=== PATIENT | male | born 1985 | race Caucasian/White ===

== ENCOUNTER 2023-01-07 09:43 | Outpatient (CLI) | payer OTHER ==
[2023-01-07 10:36] VITALS: BP 110/62
--- NOTE | 2023-01-07 10:36 | SLEEP CARE CONSULTATION ---
Information from patient questionnaire entered by Shoshana Kennedy. I have reviewed and concur with the information entered by Shoshana Kennedy. This document represents the service I personally performed and the decisions made by me, Sena Comer ARNP. History of Present Illness Service Date and Time: 01/07/2023 0943 Reason for Visit: New patient Chief Complaint: reports: Unrefreshed sleep, Snoring, Excessive daytime sleepiness, Fatigue, Frequent awakenings at night, Other (WAKING WITH HEADACHS) Date of Onset: 10-18YRS Usual bedtime: 2200 Time it takes to fall asleep: 2-3 Snores at night: Yes Observed to quit breathing while asleep: No Sleeps alone due to snoring: No Number of times waking at night: 5+ Reasons for waking at night: reports: Other (UNKNOWN). denies: Choking, Gasping for air Toss, Turn, or Twitch while sleeping: Yes Recalls having dreams: Yes Usually gets out of bed at: [id number]; weekends 0900 Feels refreshed in the morning: No Morning headache: Yes (3-5 times a week, frontal headache; resolves with tylenol; DOESNT) Sleepy or fatigued during the day: Yes Ever fallen asleep while driving: Yes (drowsy driving; no accidents) Takes day naps: Yes (varies, 1-2 a week; 3-4 hours at a time) Dreams during day naps: Yes Prior sleep studies: No Additional HPI information: I had the pleasure of seeing CARMELA GALLEGO today regarding the possibility of him having a sleep disorder. His current complaints are unrefreshed sleep, snoring, excessive daytimes sleepiness, fatigue, frequent night awakenings and waking up with headaches. He states he saw his PCP for morning headaches and was then referred here. He states that when he wakes up at night he feels like he is still in his dream state but feels his mind is awake/aware. He states he never feels like he rests well. He states his tells him he snores and is sometimes loud. He has woke himself up with snores. - Parasomnia Symptoms Ever been unable to move upon waking from sleep: No Walks in sleep: No Talks in sleep: Yes Ever acted out dreams in sleep: No Ever felt weak in the knees when startled or emotional: No Bothered by creepy, crawly, restless sensations in legs: No Problems with memory or concentration: Yes (both) Subjective Initial [place] Sleepiness Scale score: 18 (10/06/22) Past Medical History Past Medical History: reports: Arthritis, Hypothyroidism Social History The patient's occupation is a AM. Patient is and lives in . Have you smoked in the past 12 months: No Alcohol use: Yes Alcohol amount and frequency: 1-2 1-2 X MONTH Caffeine use: Yes Caffeine amount and frequency: 3 DAILY COFFEE / SODA Family History Family history of sleep disordered breathing: No Allergies and Home Medications Known drug allergies: Yes (GABAPENTIN) Drug allergies reviewed: Yes Home medication list reviewed: Yes Allergy and home medication list: Medications: Meloxicam Claritin D Review of Systems Cardiovascular: reports: high blood pressure (at last physical) Respiratory: reports: wheeze Gastrointestinal: reports: heartburn Neurological: reports: headaches Psychiatric: reports: anxiety Ear/Nose/Throat: reports: nasal congestion, sinus problems, tonsillectomy Endocrine: reports: sluggishness, too hot or cold, excessive thirst Musculoskeletal: reports: joint pain, neck pain, back pain, joint swelling, muscle pain or cramping Immunologic: reports: sneezing, rash, itching, allergies to food or environment (seasonal) Physical Exam Vital signs obtained and entered by: SHOSHANA Lanza MA Blood Pressure: 110/62 (LEFT ARM) Cuff size: regular Heart Rate: 54 O2 Saturation: 99 Height: 5 ft 8 in Weight: 187 lb 3.2 oz Body Mass Index: 28.4 BMI Classification: Overweight Neck circumference: 16.25 Mouth and throat: narrow oropharynx Soft palate: long Hard palate: normal Uvula: normal (small) Uvula visualization: 25% Mallampati Class III Tongue: normal in size Tonsils: absent bilaterally Neck: normal w/o lymphadenopathy or thyromegaly Heart: regular rate and rhythm Lungs: clear bilaterally Impression and Plan 1. Suspected Obstructive Sleep Apnea-Hypopnea Syndrome, as suggested by a history of loud and irregular snoring, morning headache, frequent awakening during the night, unrefreshed sleep, cognitive impairment, and excessive daytime sleepiness. Narrow oropharynx and obesity are common predisposing factors for obstructive sleep apnea-hypopnea syndrome. I recommend proceeding to polysomnog josé miguel to confirm the diagnosis and to assess severity. If the patient has significant sleep disordered breathing, a manual CPAP titration study will also be performed to find the optimal treatment pressure. I informed the patient of what the sleep studies involve and after some discussion, obtained agreement to proceed. The pathophysiology of obstructive sleep apnea-hypopnea syndrome was discussed with the patient and health risks of cardiovascular and cerebrovascular disease if not treated. Risks of drowsy driving discussed in detail and patient advised to avoid long distance driving and to pullman car repairer at the first sign of drowsiness. Patient agreed to plan. * Schedule polysomnography * Avoid long distance driving or driving when feeling sleepy. * Avoid alcohol, sedative and muscle relaxant around bedtime. * Attempt to lose weight. * Review instructions provided by trained office staff on how to prepare for the sleep study. * Return for follow-up after sleep study completed. Counseling Topics: Weight loss health impact Visit Type: In Office Time Spent with Patient (minutes): 33 Provider Statement: I spent 100% of the Face to Face Visit with the patient with greater than 50% spent counseling the patient and coordination of care.
== END 2023-01-07 09:44 | disposition home or self-care (01) ==
LOC: SC 09:43
PROVIDERS: ATTEND Nurse Practitioner Family
DX: R06.83 Snoring (principal); G47.8 Other sleep disorders; R51.9 Headache, unspecified; G47.10 Hypersomnia, unspecified; R53.83 Other fatigue; E66.3 Overweight; Z68.28 Body mass index [BMI] 28.0-28.9, adult
CPT/HCPCS: 99203; 99212

== ENCOUNTER 2023-02-01 19:33 | Outpatient (CLI) | payer OTHER | END 2023-02-01 19:34 | disposition home or self-care (01) | LOC: SC 19:33 | PROVIDERS: ATTEND Nurse Practitioner Family | DX: R06.83 Snoring (principal); G47.8 Other sleep disorders; R51.9 Headache, unspecified; G47.10 Hypersomnia, unspecified; R53.83 Other fatigue; E66.3 Overweight; Z68.28 Body mass index [BMI] 28.0-28.9, adult | CPT/HCPCS: 95810 ==

== ENCOUNTER 2023-02-03 11:02 | Outpatient (CLI) | payer OTHER ==
--- NOTE | 2023-02-03 11:23 | Sleep Patient Instructions ---
Sleep Center Visit Summary - Patient Visit Information Reason for Visit: Sleep Study Follow Up - Patient Instructions Additional Instructions: Your sleep study today was negative for significant sleep disordered breathing. You were found to have episodes of snoring. There are different ways to control snoring including weight loss, oral devices made by a dentist for surgical options through ENT specialist. You should not use oral devices that do not fit properly because they can affect your bite. You should also check insurance coverage of oral devices for snoring because they may not be cover well. You may obtain a referral to an ENT specialist through your primary provider Follow-up as needed. - Clinic Information Contact: [facility] [address] [place] [id number] [email or web address] T: [phone]
[2023-02-03 11:26] VITALS: BP 120/74
--- NOTE | 2023-02-03 11:26 | SLEEP CARE CONSULTATION ---
Information from patient questionnaire entered by Shoshana Kennedy. I have reviewed and concur with the information entered by Shoshana Kennedy. This document represents the service I personally performed and the decisions made by , Sena Comer ARNP. History of Present Illness Service Date and Time: 02/03/2023 1102 Initial [place] Sleepiness Scale score: 18 (10/06/22) Current [place] Sleepiness Scale score: 19 (02/03/23) Additional HPI information: CARMELA GALLEGO returns for follow up and results of the recently performed polysomnography. The patient was informed of the following findings: No significant sleep disordered breathing with an average AHI of 0.4 and roc oxygen saturation of 92%. I explained the pathophysiology behind obstructive sleep apnea. Patient does not have sleep apnea and was advised how weight gain could increase the risk of developing sleep apnea in the future. I strongly encouraged the patient to lose weight. Patient has loud snoring. Snoring can be reduced by weight loss. Weight loss is best achieved with diet consult. Patient instructed to contact PCP for referral. Snoring can also be treated with an oral appliance from a dentist. Advised to check insurance coverage. In addition, an ENT evaluation can be do to see if other treatment is indicated. Patient does not drink alcohol. Patient was cautioned about risks of drowsy driving until sleepiness symptoms resolve. Sleep Study - Results Type of Sleep Study: Polysomnography (COMPLETED 02/01/23) Prior sleep studies: No Polysomnography/Home Sleep Study results: IMPRESSION: The quality of the study is good. The patient had normal sleep efficiency. The sleep architecture was normal as well. Respiratory monitoring showed no evidence of sleep disordered breathing (AHI = 0.4) or hypoxia (roc oxygen saturation of 92%). The patient slept mostly supine (supine AHI = 0.4; non-supine = 0.51). Snore was loud in intensity. There was no significant periodic leg movement of sleep. Cardiac rhythm was normal sinus rhythm without significant arrhythmia. No abnormal behavior (parasomnia) observed during the night. Allergies and Home Medications Known drug allergies: Yes (gabapentin) Drug allergies reviewed: Yes Home medication list reviewed: Yes (meloxicam) Allergy and home medication list: Allergies gabapentin Allergy (Verified 02/02/23 16:28) Review of Systems Review of systems same as previous: No (osteoarthritis) Physical Exam Vital signs obtained and entered by: SHOSHANA Lanza MA Blood Pressure: 120/74 (LEFT ARM) Cuff size: regular Heart Rate: 59 O2 Saturation: 99 Height: 5 ft 8 in Weight: 190 lb 3.2 oz Body Mass Index: 28.9 BMI Classification: Overweight Impression and Plan Snoring but no significant sleep disordered breathing. Patient advised that often weight loss will reduce snoring as well as apnea risk. An oral appliance can also be used for snoring. This would require a dental consultation. Patient cautioned not to use other online appliances as can cause bite issues. A list of accredited dentists in [facility] and one local dentist who makes oral appliances is available in office as needed. Patient is advised to check if insurance will cover. An ENT consult can also be helpful to determine if any other treatment is an option. * Attempt to lose weight * Avoid alcohol consumption near bedtime * The patient is cautioned about driving until sleepiness is completely resolve d. * Return as needed for follow up. Counseling Topics: Weight loss health impact Visit Type: In Office Time Spent with Patient (minutes): 20 Provider Statement: I spent 100% of the Face to Face Visit with the patient with greater than 50% spent counseling the patient and coordination of care.
== END 2023-02-03 11:03 | disposition home or self-care (01) ==
LOC: SC 11:02
PROVIDERS: ATTEND Nurse Practitioner Family
DX: R06.83 Snoring (principal); E66.3 Overweight; Z68.28 Body mass index [BMI] 28.0-28.9, adult
CPT/HCPCS: 99212; 99213

== ENCOUNTER 2023-06-07 09:48 | Outpatient (CLI) | payer OTHER ==
--- NOTE | 2023-06-07 15:13 | MRI Report ---
PROCEDURE: MRI brain with and without contrast INDICATIONS: HISTORY OF VISUAL FLASHES, FLOATERS, WEAKNESS CONTRAST: gadavist 8.2ml TECHNIQUE: Noncontrast axial T1 spin echo, axial T2 fast spin echo, sagittal and axial FLAIR, coronal T2 fast sp in echo, axial gradient echo, axial diffusion and ADC through the brain. After the administration of contrast, axial and coronal T1 spin echo with fat saturation through the brain. COMPARISON: None. FINDINGS: Image quality: Excellent. CSF spaces: Basal cisterns are patent. No extra-axial fluid collections. Ventricles are normal in size and shape. Brain: No midline shift. No intracranial bleeds or masses. No abnormal intracranial enhancement. There is cerebral volume loss for age. There is periventricular white matter chronic small vessel is chemic change. The brainstem appears normal. Diffusion-weighted images demonstrate no acute infarct . No chronic ischemic insults. Normal intravascular flow voids are present. Skull and face: Calvarial marrow is normal in signal. Orbits appear normal. Sinuses: Bilateral maxillary sinus mucosal thickening measures up to 1.2 cm on the left. Additional c oastal thickening in the ethmoid and to a lesser degree the left frontal sinus as well IMPRESSION: Predominantly left-sided maxillary, ethmoid and frontal mucosal sinus disease Reviewed by: Andrez Guerra MD on 06/07/2023 2:11 PM LIZETTE Approved by: Andrez Guerra MD on 06/07/2023 2:11 PM LIZETTE Station ID: [id number]
== END 2023-06-07 09:49 | disposition home or self-care (01) ==
LOC: DI 09:48
PROVIDERS: ATTEND Family Medicine
DX: H43.399 Other vitreous opacities, unspecified eye (principal); H53.8 Other visual disturbances; R53.1 Weakness; G89.29 Other chronic pain; J32.0 Chronic maxillary sinusitis; J32.2 Chronic ethmoidal sinusitis; J32.1 Chronic frontal sinusitis
CPT/HCPCS: 70553; A9585

== ENCOUNTER 2024-02-03 08:10 | Emergency (ER) | payer OTHER ==
[2024-02-03 08:35] LABS: BASOPHILS # (AUTO) 0.1 10^3/uL (0.0-0.1); BASOPHILS % (AUTO) 0.4 %; EOSINOPHILS # (AUTO) 0.2 10^3/uL (0.0-0.7); HCT - HEMATOCRIT 47.1 % (42.0-52.0); LYMPHOCYTES # (AUTO) 0.2 10^3/uL (1.5-3.5); LYMPHOCYTES % (AUTO) 1.9 %; MEAN CORPUSCULAR HEMOGLOBIN 30.6 pg (27.0-31.0); MEAN CORPUSCULAR VOLUME 90.1 fL (80.0-94.0); MONOCYTES # (AUTO) 0.7 10^3/uL (0.0-1.0); MONOCYTES % (AUTO) 5.3 %; NEUTROPHILS % (AUTO) 90.2 %; PLT - PLATELET COUNT 282 10^3/uL (130-450); RED BLOOD COUNT 5.23 10^6/uL (4.70-6.10); RED CELL DISTRIBUTION WIDTH 13.1 % (12.0-15.0); WHITE BLOOD COUNT 12.2 x10^3/uL (4.8-10.8)
[2024-02-03 08:39] VITALS: O2SAT 100
[2024-02-03] MEDS: SODIUM CHLORIDE 0.9% 2,000 ML IV STA (08:48)
[2024-02-03 08:49] LABS: ALBUMIN 4.7 g/dL (3.2-5.5); ALBUMIN/GLOBULIN RATIO 1.5 (1.0-2.2); BILIRUBIN,TOTAL 0.7 mg/dL (0.2-1.0); CALCIUM 10.3 mg/dL (8.5-10.3); CREATININE 1.4 mg/dL (0.6-1.3); MAGNESIUM 1.7 mg/dL (1.7-2.3); POTASSIUM 4.2 mmol/L (3.5-4.5); TOTAL PROTEIN 7.9 g/dL (6.4-8.9)
[2024-02-03] MEDS: SODIUM CHLORIDE 0.9% 1,000 ML IV STA (08:49)
--- NOTE | 2024-02-03 08:50 | ED Physician Documentation ---
History of Present Illness - Stated complaint Stated Complaint: PASSED OUT/HOT FLASH - Chief complaint Chief Complaint: Neuro - History obtained from History obtained from: Patient - Additonal information Additional information: Patient is a 39-year-old male with a history of high cholesterol, migraines, hypothyroidism presenting for evaluation of multiple episodes of syncope. He states the first episode occurred over a week ago on a Tuesday when he was visiting a friend in [place]. He states he woke up at 3:30 in the morning and started having lower abdominal cramping and was sitting on the toilet when he felt warm and then had a syncopal episode. He was unable to get an appointment at the [facility] for follow-up. This morning he again woke up cell reliner around 3:00 and again felt cramping in the lower abdomen and went to sit on the toilet and felt warm and syncopized. He states he then went back to bed and a short time later had another episode around 5:00 this morning that was the same that was preceded by lower abdominal cramping and feeling hot. He reports having a third episode but with the third episode he was able to lay himself down before he had the syncope. He does feel like he may have hit his head. He does not take a blood thinner. He has a history of migraines reports a frontal headache that feels similar to prior migraines it is not the worst hea dache he has had. He has had loose stools today as well as last Tuesday when he had the other episode. He did have 1 episode of vomiting. Denies blood in emesis or stools. Denies fever, cough, chest pain, difficulty breathing, abnormal urination. Denies any known sick contacts with similar symptoms, recent travel, eating food that was out of the ordinary for him. Review of Systems Constitutional: denies: Fever Cardiac: denies: Chest pain / pressure Respiratory: denies: Dyspnea GI: reports: Abdominal Pain (Lower abdominal cramping), Vomiting (X1), Diarrhea. denies: Bloody / black stool : denies: Dysuria Neurologic: reports: Syncope PD PAST MEDICAL HISTORY - Past Medical History Past Medical History: Yes Cardiovascular: Other Endocrine/Autoimmune: HyPOthyroidism - Present Medications Home Medications: Ambulatory Orders Medication Instructions Recorded Confirmed Loratadine/Pseudoephedrine See Rx Instructions .ROUTE .COMPLEX 01/07/23 02/03/24 [Claritin-D 24 Hour Tablet] Meloxicam, Submicronized See Rx Instructions .ROUTE .COMPLEX 01/07/23 02/03/24 [Meloxicam] - Allergies Allergies/Adverse Reactions: Allergies Allergy/AdvReac Type Severity Reaction Status Date / Time gabapentin Allergy Unknown Verified 02/03/24 08:22 SURGICAL ADHESIVE Allergy Unknown Uncoded 02/03/24 08:22 - Social History Does the pt smoke?: No Smoking Status: Never smoker Does the pt drink ETOH?: No - Immunizations Immunizations are current?: Yes - POLST Patient has POLST: No PD ED PE NORMAL - General General: Alert and oriented X 3, No acute distress, Well developed/nourished - HEENT HEENT: Atraumatic, PERRL, EOMI, Moist mucous membranes, Pharynx benign - Neck Neck: Supple, no meningeal sign - Cardiac Cardiac: RRR, Strong equal pulses - Respiratory Respiratory: No respiratory distress, Clear bilaterally - Abdomen Abdomen: Normal bowel sounds, Soft, Non tender, Non distended - Derm Derm: Warm and dry - Extremities Extremities: No deformity - Neuro Neuro: Alert and oriented X 3, chemical checker 2-12 intact, No motor deficit, No sensory deficit, Normal speech Results - Vitals Vitals: Vital Signs - 24 hr 02/03/24 02/03/24 02/03/24 08:17 08:30 08:44 Temperature 36.7 C Heart Rate 109 H 107 H Heart Rate [ 125 H Sitting] Heart Rate [ 123 H Standing] Heart Rate [ 99 Supine] Respiratory 21 25 H Rate Blood Pressure 115/81 H 107/73 Blood Pressure 110/75 [Sitting] Blood Pressure 98/69 [Standing] Blood Pressure 109/78 [Supine] O2 Saturation 99 100 02/03/24 02/03/24 10:30 10:54 Temperature 37.9 C Heart Rate 108 H 98 Heart Rate [ Sitting] Heart Rate [ Standing] Heart Rate [ Supine] Respiratory 17 19 Rate Blood Pressure 107/64 114/66 Blood Pressure [Sitting] Blood Pressure [Standing] Blood Pressure [Supine] O2 Saturation 100 100 Oxygen O2 Source Room air - EKG (time done) 0832 EKG releavant findings:: EKG personally interpreted by author of this note. Relevant findings are: Rate 95, normal sinus rhythm, no STEMI, QTc 403 - Labs Labs: Laboratory Tests 02/03/24 02/03/24 02/03/24 08:30 08:30 08:30 WBC 12.2 H RBC 5.23 Hgb 16.0 Hct 47.1 MCV 90.1 MCH 30.6 MCHC 34.0 RDW 13.1 Plt Count 282 MPV 10.0 Neut # (Auto) 11.0 H Lymph # (Auto) 0.2 L [place] # (Auto) 0.7 Eos # (Auto) 0.2 Baso # (Auto) 0.1 Absolute Nucleated RBC 0.00 Nucleated RBC % 0.0 Sodium 137 Potassium 4.2 Chloride 107 Carbon Dioxide 21 Anion Gap 9.0 BUN 16 Creatinine 1.4 H Estimated GFR (MDRD) 56 L Glucose 155 H Calcium 10.3 Magnesium 1.7 Total Bilirubin 0.7 AST 33 ALT 43 Alkaline Phosphatase 71 Total Protein 7.9 Albumin 4.7 Globulin 3.2 Albumin/Globulin Ratio 1.5 Lipase 18 TSH 1.48 PD Medical Decision Making - ED course Complexity details: reviewed results, re-evaluated patient, d/w patient ED course: Patient is a 39-year-old male presenting for evaluation of multiple syncopal episodes in the setting of lower abdominal cramping and sitting on the toilet and feeling hot. Patient does report hitting his head but has a normal neuroexam and is not on blood thinners. His EKG demonstrates a normal sinus rhythm. The he is orthostatic and was given 2 L of IV fluids. CBC and chemistries were reviewed. Creatinine of 1.4 without any prior for comparison. Patient is feeling much better. No arrhythmias noted on monitor. TSH is normal. Symptoms are likely related to orthostasis and patient was counseled on continued hydration as well as need for close follow-up with outpatient PCP. Patient advised on strict return precautions for any concerning symptoms. Departure - Departure Disposition: 01 Home, Self Care Clinical Impression: Orthostatic hypotension, Syncope Condition: Stable Instructions: ED Hypotension Orthostatic, ED Fainting Unkn Cause Follow-Up: [facility] [Provider Group] Comments: You were evaluated after several fainting spells. Your testing today shows that your blood pressure was dropping down and your heart rate was going up with changing positions. This is concerning for dehydration and so you were given 2 L of IV fluids with improvement. Your complete blood count and chemistries were checked. Your kidneys did look a little dry which also supports dehydration. I would recommend close follow-up with your primary care doctor at the [facility]. I would recommend taking it easy today and making sure you are taking plenty of time before changing positions as well as staying hydrated. Return to the emergency department if you develop any worsening symptoms. Forms: PCP List Discharge Date/Time: 02/03/24 10:54
[2024-02-03 10:57] VITALS: BP 114/66
== END 2024-02-03 10:54 | disposition home or self-care (01) ==
LOC: ED 08:10
DX: I95.1 Orthostatic hypotension (principal); E03.9 Hypothyroidism, unspecified; E78.00 Pure hypercholesterolemia, unspecified
CPT/HCPCS: 36415; 80053; 83690; 83735; 84443; 85025; 93005; 96360; 96361; 99284